=== PATIENT | male | born 1960 | race Caucasian/White ===

== ENCOUNTER 2020-04-08 06:14 | Emergency (ER) | payer BC ==
[2020-04-08] MEDS ORDERED: Ketorolac 60 MG/2 ML SDV IM ONE (06:43)
--- NOTE | 2020-04-08 06:46 | EDM.PDOC ---
<OfficerAnanth - Last Filed: 04/08/20 06:45> ED HPI GENERAL MEDICAL PROBLEM - General Chief Complaint: Back Pain or Injury Stated Complaint: FELL ON ICE BROKE RIBS Time Seen by Provider: 04/08/20 06:38 Source of Information: Reports: Patient, RN Notes Reviewed History Limitations: Reports: No Limitations - History of Present Illness INITIAL COMMENTS - FREE TEXT/NARRATIVE: 59-year-old gentleman presents emergency department a complaint of rib pain, he injured himself yesterday when he slipped on the ice landing on an ice ridge in the middle of his back on the left side. He states it now hurts to take a deep breath and has difficulty ambulating due to the pain he has taken both Advil and Tylenol with minimal effect I just took Tylenol at 2 AM this morning left back/flank pain Pain Score (Numeric/FACES): 8 - Related Data Allergies Allergy/AdvReac Type Severity Reaction Status Date / Time No Known Allergies Allergy Verified 04/08/20 06:29 Home Meds: Home Meds Acetaminophen/oxyCODONE [Percocet 325-5 MG] 1 each PO Q4H PRN #16 tab 04/08/20 [Rx] Metoprolol Succinate [Toprol Xl] 50 mg PO BEDTIME 04/08/20 [History] [place]-3 Fatty Acids/Fish Oil [Fish Oil 1,200 mg Softgel] 2 each PO DAILY 04/08/20 [History] Simvastatin [Zocor] 20 mg PO BEDTIME 04/08/20 [History] Past Medical History Cardiovascular History: Reports: High Cholesterol, Hypertension - Infectious Disease History Infectious Disease History: Reports: Chicken Pox, Measles, Mumps - Past Surgical History GI Surgical History: Reports: Hernia Repair/Other Musculoskeletal Surgical History: Reports: Shoulder Surgery, Other (See Below) Other Musculoskeletal Surgeries/Procedures:: arthroscopic decompression of right shoulder Social & Family History - Tobacco Use Tobacco Use Status *Q: Never Tobacco User - Caffeine Use Caffeine Use: Reports: Coffee - Recreational Drug Use Recreational Drug Use: No ED ROS GENERAL - Review of Systems Review Of Systems: See Below Constitutional: Reports: No Symptoms Respiratory: Reports: No Symptoms Cardiovascular: Reports: Chest Pain Musculoskeletal: Reports: Back Pain ED EXAM, GENERAL - Physical Exam Exam: See Below Exam Limited By: No Limitations General Appearance: Alert, Mild Distress Respiratory/Chest: No Respiratory Distress, Lungs Clear, Normal Breath Sounds, No Accessory Muscle Use, Other (Tenderness to palpation mid scapular line about T6 level left side) Cardiovascular: Regular Rate, Rhythm, No Murmur GI/Abdominal: Soft, Non-Tender Departure - Departure Disposition: Home, Self-Care 01 Clinical Impression: Rib pain on left side Prescriptions: Acetaminophen/oxyCODONE [Percocet 325-5 MG] 1 each PO Q4H PRN #16 tab PRN Reason: Pain Referrals: PCP,None [Primary Care Provider] - Forms: ED Department Discharge Additional Instructions: Continue ibuprofen or Aleve per package instructions, next dose after 1 pm today. Add either acetaminophen 1000 mg every 6 hrs OR Percocet as directed. Recheck with your provider before the weekend, call for an appt. Activity as tolerated. <Fei Moses G - Last Filed: 04/08/20 07:30> Course - Vital Signs Last Recorded V/S: Last Vital Signs Temp 36.4 C 04/08/20 06:52 Pulse 67 04/08/20 06:52 Resp 17 04/08/20 06:52 BP 177/100 H 04/08/20 06:52 Pulse Ox 93 L 04/08/20 06:52 - Orders/Labs/Meds Orders: Active Orders 24 hr Category Date Time Status Chest 2V [CR] Urgent Exams 04/08/20 06:44 Taken Meds: Medications Discontinued Medications Generic Name Dose Route Start Last Admin Trade Name Freq PRN Reason Stop Dose Admin Ketorolac Tromethamine 60 mg 04/08/20 06:43 04/08/20 06:57 Toradol IM 04/08/20 06:44 60 mg ONETIME ONE Administration Oxycodone/Acetaminophen 1 tab 04/08/20 07:27 Percocet 325-5 Mg PO 04/08/20 07:28 ONETIME STA - Radiology Interpretation Free Text/Narrative:: CXR-nothing acute noted. Departure - Departure Time of Disposition: 07:29 Condition: Fair Sepsis Event Note (ED) - Focused Exam Vital Signs: Vital Signs Temp Pulse Resp BP Pulse Ox 04/08/20 06:52 36.4 C 67 17 177/100 H 93 L 04/08/20 06:49 36.4 C 67 17 177/100 H 93 L
[2020-04-08 06:52] VITALS: BP 177/100; PULSE 67
[2020-04-08] MEDS ORDERED: Acetaminophen/oxyCODONE 325-5 MG Tab PO STA (07:27)
--- NOTE | 2020-04-08 09:21 | CR ---
CHEST: 2 view CLINICAL HISTORY:Fall, left rib pain COMPARISON:None FINDINGS: There is slightly displaced fractures of the left seventh through ninth ribs. There is no pleural effusion or pneumothorax. There is some streaky atelectasis in both lung bases. Heart size is upper limits of normal. IMPRESSION: Displaced fractures of the left seventh through ninth ribs Patchy bibasal atelectasis Dr. Moses was notified of the findings at the time of this dictation at 9:05 AM
== END 2020-04-08 07:50 | disposition home or self-care (01) ==
LOC: JP.ED 06:14
DX: R07.81 Pleurodynia (principal); I10 Essential (primary) hypertension; E78.00 Pure hypercholesterolemia, unspecified; Z79.899 Other long term (current) drug therapy
CPT/HCPCS: 71046; 96372; 99282; 99283; A9270; J1885